=== PATIENT | female | born 1970 | race Caucasian/White ===

== ENCOUNTER 2023-07-01 08:37 | Day surgery (SDC) | payer OTHER | END 2023-07-01 14:05 | disposition home or self-care (01) | LOC: AMB-ENDOS 08:37 | PROVIDERS: ATTEND Colon & Rectal Surgery | DX: D12.4 Benign neoplasm of descending colon (principal); K59.00 Constipation, unspecified; K64.8 Other hemorrhoids; Z20.822 Contact with and (suspected) exposure to COVID-19 ==

== ENCOUNTER 2023-08-15 14:13 | Emergency (ER) | payer OTHER ==
[~2023-08-15] VITALS: Ht 167.6 cm; Wt 83.9 kg
== END 2023-08-15 18:20 | disposition home or self-care (01) ==
LOC: ER 14:13
DX: M75.31 Calcific tendinitis of right shoulder (principal)